=== PATIENT | female | born 1960 | race Caucasian/White ===

== ENCOUNTER → 2016-06-27 | Outpatient (CLI) | payer BC ==
[~2016-06-27] MED LIST: APIDRA100 UNIT/1 SQ; ASPIR 8181 MG PO; DULERA 200 MCG8.8 GM INH; ELAVIL 25 MG TA25 MG PO; FLONASE 0.05% N16 GM; ISOSORBIDE MONO30 MG PO; LANTUS100 UNIT/1 SQ; LEFLUNOMIDE20 MG PO; LOPRESSOR50 MG PO; LOSARTAN POTAS100 MG PO; METFORMIN HCL1000 MG PO; METOPROLOL TAR100 MG PO; MONTELUKAST SOD10 MG PO; OMEPRAZOLE40 MG PO; SIMPONI100 MG/11 SQ; VENLAFAXINE HCL75 MG PO; VENTOLIN/PROVE0.5 ML INH; ZOCOR40 MG PO; ZOFRAN ODT8 MG PO
== END ==
LOC: US 12:33
DX: N26.1 Atrophy of kidney (terminal) (principal); E04.1 Nontoxic single thyroid nodule
CPT/HCPCS: 76536

== ENCOUNTER → 2020-06-17 | Outpatient (CLI) | payer MEDICARE ==
[~2020-06-17] MED LIST changes: +AUGMENTIN 875-1 EACH PO; +ESGIC 50-325-41 EACH PO
== END ==
LOC: MAMO 13:18
DX: R92.8 Other abnormal and inconclusive findings on diagnostic imaging of breast (principal)
CPT/HCPCS: 77065; G0279

== ENCOUNTER 2020-07-06 13:17 | Emergency (ER) | payer MEDICARE | END 2020-07-06 15:20 | disposition home or self-care (01) | LOC: ER1 13:17 | DX: M25.511 Pain in right shoulder (principal); R51.9 Headache, unspecified; M79.671 Pain in right foot; M25.571 Pain in right ankle and joints of right foot; Z23 Encounter for immunization | CPT/HCPCS: 73030; 73590; 73610; 73630; 90471; 90715; 99283 ==

== ENCOUNTER → 2020-11-12 | Outpatient (CLI) | payer MEDICARE | LOC: RAD 13:13 | DX: M54.5 Low back pain (principal); M62.838 Other muscle spasm; M47.816 Spondylosis without myelopathy or radiculopathy, lumbar region | CPT/HCPCS: 72100 ==

== ENCOUNTER → 2020-12-21 | Outpatient (CLI) | payer MEDICARE | LOC: MAMO 13:00 | DX: R92.8 Other abnormal and inconclusive findings on diagnostic imaging of breast (principal) | CPT/HCPCS: 77066; G0279 ==

== ENCOUNTER → 2021-05-11 | Outpatient (CLI) | payer MEDICARE | LOC: EXRD 04-19 11:00 | DX: E04.1 Nontoxic single thyroid nodule (principal); E07.89 Other specified disorders of thyroid | CPT/HCPCS: 76536 ==

== ENCOUNTER → 2021-10-25 | Outpatient (CLI) | payer MEDICARE | LOC: KOH-I 11:30 | DX: D44.0 Neoplasm of uncertain behavior of thyroid gland (principal); E04.1 Nontoxic single thyroid nodule | CPT/HCPCS: 76536 ==